=== PATIENT | female | born 1940 | race Caucasian/White ===

== ENCOUNTER 2025-01-08 08:32 | Day surgery (SDC) | payer MEDICARE, OTHER ==
[~2025-01-08 08:32] MED LIST: Chloroprocaine 3% 30 MG/ML 20 ML SDV ONE; Sodium Chloride 0.9% 10 ML Syringe FLUSH PRN; Sodium Chloride 0.9% 10 ML Syringe FLUSH SCH
[2025-01-08] MEDS ORDERED: Chloroprocaine 3% 30 MG/ML 20 ML SDV ONE (08:37)
[2025-01-08] MEDS ORDERED: propofoL 500 MG/50 ML 50 ML ONE (08:51)
[2025-01-08] MEDS ORDERED: Midazolam 1 MG/ML 2 ML SDV ONE (08:51)
[2025-01-08] MEDS ORDERED: fentaNYL 100 MCG/2 ML SDV ONE (08:51)
[2025-01-08] MEDS ORDERED: Propofol 200 MG/20 ML SDV ONE (08:51)
[2025-01-08] MEDS ORDERED: ceFAZolin 2 GM Vial ONE (08:54)
[2025-01-08] MEDS ORDERED: Ropivacaine 0.5% 5 MG/ML 30 ML SDV ONE (08:54)
[2025-01-08] MEDS: Lactated Ringers 1,000 ML IV SCH (09:10)
[2025-01-08] MEDS ORDERED: Ondansetron 4 MG/2 ML SDV IVPUSH PRN (09:58)
[2025-01-08] MEDS ORDERED: HYDROmorphone 0.5 MG/0.5 ML Syringe IVPUSH PRN (09:58)
[2025-01-08] MEDS ORDERED: ePHEDrine 50 MG/ML SDV ONE (11:09)
[2025-01-08] MEDS ORDERED: Lactated Ringers 1,000 ML ONE (11:30)
[2025-01-08] MEDS ORDERED: Dexamethasone 4 MG/ML 5 ML MDV ONE (11:31)
[2025-01-08] MEDS: VANCOmycin 1 GM SDV ONE (12:00)
[2025-01-08] MEDS: Morphine 8 MG, EPINEPHrine 0.3 MG, Cefuroxime 750 MG, Ketorolac 30 MG, Sodium Chloride ... PRN (12:00)
[2025-01-08] MEDS: Tranexamic Acid 1,000 MG/10 ML Vial ONE (12:00)
[2025-01-08] MEDS: fentaNYL 100 MCG/2 ML SDV IVPUSH PRN (12:45)
[2025-01-08] MEDS: Acetaminophen/HYDROcodone 325-5 MG Tab PO PRN (13:09)
== END 2025-01-08 15:24 | disposition home or self-care (01) ==
LOC: JD.SDS 08:32
PROVIDERS: ATTEND Orthopaedic Surgery
DX: M17.0 Bilateral primary osteoarthritis of knee (principal); I10 Essential (primary) hypertension; Z88.0 Allergy status to penicillin; Z88.2 Allergy status to sulfonamides; Z79.82 Long term (current) use of aspirin; Z79.899 Other long term (current) drug therapy; Z79.890 Hormone replacement therapy
CPT/HCPCS: 0055T; 27447; 64447; 64454; 73560; 97116; 97161; 97530; A9270; J0171; J0690; J0697; J1100; J1885; J2250; J2272; J2401; J2704; J2795; J3010; J7120; J3490